=== PATIENT | female | born 1945 | race Caucasian/White ===

== ENCOUNTER 2024-10-04 22:58 | Emergency (ER) | payer MEDICARE, OTHER, SELFPAY ==
[2024-10-04 23:01] VITALS: BP 206/103
[2024-10-05 00:06] LABS: % Basophils 1.6 % (0-2); % Eosinophils 3.4 % (0-6); % Immature Granulocytes 0.4 % (0-0.5); % Lymphocytes 25.5 % (20.5-51.1); % Monocytes 10.5 % (1.7-9.3); % Neutrophils 58.6 % (42.2-75.2); Absolute Basophils 0.1 10^3/uL (0-0.2); Absolute Eosinophils 0.2 10^3/uL (0-0.7); Absolute Lymphocytes 1.4 10^3/uL (1.2-3.4); Absolute Monocytes 0.6 10^3/uL (0.1-0.6); Absolute Neutrophils 3.2 10^3/uL (1.4-6.5); Hemoglobin 14.1 g/dL (12.0-16.0); Mean Corp Hgb Conc. 33.6 g/dL (33.0-37.0); Mean Corpuscular Hgb 30.9 pg (27.0-31.0); Mean Corpuscular Volume 91.9 fL (81.0-99.0); Mean Platelet Volume 9.4 fL (7.4-10.4); Nucleated Red Blood Cells % 0 %; Platelet Count 240 10^3/uL (130-400); Red Blood Cell Count 4.57 10^6/uL (4.20-5.40); Red Cell Dist. Width 12.6 % (11.5-14.5); White Blood Cell Count 5.5 10^3/uL (4.8-10.8)
[2024-10-05 00:25] LABS: ALT (SGPT) 19 U/L (0-35); AST (SGOT) 27 U/L (14-36); Alkaline Phosphatase 54 U/L (38-126); Blood Urea Nitrogen 29 mg/dl (7-17); Carbon Dioxide 29 mmol/L (22-30); Chloride 106 mmol/L (98-107); Glucose 117 mg/dl (70-99); Potassium 4.3 mmol/L (3.5-5.1); Sodium 140 mmol/L (135-145); Total Bilirubin 0.8 mg/dl (0.2-1.3); Total Protein 6.6 g/dl (6.3-8.2); eGFR > 60.00
[2024-10-05 01:31] VITALS: BP 180/98
[2024-10-05 02:38] VITALS: BP 173/79
[2024-10-05 03:00] VITALS: BP 150/83
--- NOTE | 2024-10-05 03:25 | DOWNTIME ---
There was a [employer] Downtime on 10/05/2024 from 0200 to 10/06/2023 at 0318 . Downtime documentation of patient's care, including medication administrations, has been reconciled in the electronic record per guidelines. Refer to the
patient's paper chart under the miscellaneous tab to see printed paper medication records and downtime forms.
[2024-10-05 03:29] VITALS: BMI 24.2
--- NOTE | 2024-10-05 03:55 | ED.GENMED ---
History of Present Illness
General
Chief Complaint: Blood Pressure Problem
Source: patient and spouse
Exam Limitations: none
Time Seen by Provider: 10/05/24 03:31
Nursing documentation reviewed up to this point in time: agreed with
History of Present Illness
History of Present Illness:
79-year-old female with history of hypertension hyperlipidemia, GERD presenting to the emergency department today with concerns of elevated blood pressure of the last few days. Does take olmesartan typically takes 7.5 mg daily. Denies any specific
chest pain numbness weakness or any severe headache.
Review of Systems
Review of Systems
Allergies reviewed?: Yes
All Other Systems: ROS reviewed and negative except as documented in HPI and ROS
Phy Exam
Physical Exam
Physical Exam:
GENERAL: Alert , in no apparent distress
EYE: pupils equal and reactive
NECK: Supple, no significant adenopathy.
ENT: o/p clr, mmm.
CARDIAC: Regular rate and rhythm .
LUNGS: Clear breath sounds bilaterally, no acute respiratory distress, no wheezes/rales/rhonchi
ABDOMEN: Soft, without focal tenderness, no r/g, no cvat
NEUROLOGICAL: Alert and oriented, no focal neuro deficits 5-5 upper and lower extremity strength walking with steady gait
SKIN: Warm and dry, skin intact.
MUSCULOSKELETAL: No edema, well perfused.
PSYCH: Normal and appropriate interaction.
Course
Orders/Labs/Results
Orders:
Orders
10/04/24 23:57
CMP [Comprehensive Metabolic Panel] Urgent
Complete Blood Count/With Diff Urgent
Abnormal Lab Results
10/04/24
23:57
Monocytes % 10.5 H %
(1.7-9.3)
BUN 29 H mg/dl
(7-17)
Glucose 117 H mg/dl
(70-99)
10/04/24 23:57
10/04/24 23:57
Vital Signs
Initial and Last Documented VS:
Initial Vital Signs
Temp Pulse Resp BP Pulse Ox
98.4 F 94 18 206/103 98
10/04/24 23:01 10/04/24 23:01 10/04/24 23:01 10/04/24 23:01 10/04/24 23:01
Last Documented Vital Signs
Temp Pulse Resp BP Pulse Ox
98.4 F 85 18 150/83 96
10/04/24 23:01 10/05/24 01:31 10/05/24 01:31 10/05/24 03:00 10/05/24 03:30
MDM/Problems Addressed
MDM/Problems Addressed:
79-year-old female presenting to the emergency department today with concerns of elevated blood pressure. Improving here without specific treatment. 150/83 during my assessment vital signs normal currently asymptomatic. Did have a mild headache
earlier today symptoms did not seem consistent with any hypertensive emergency. Patient advised for close outpatient follow-up with the primary care doctor. Return precautions given.
*Critical Care Note
Total Time (30-74mins, 75-104mins- exclusive of procedures): Not Applicable
ED Attending Note
-
Portions of this chart may have been created with voice recognition software.� Occasional wrong word or��sound alike� substitutions may have occurred due to the inherent limitations of voice recognition software.
Discharge Plan
Departure
Patient Disposition: Home (Routine Discharge)
Date of Disposition: 10/05/24
Time of Disposition: 03:55
Patient with high blood pressure during this ER visit?: Yes
Condition: Good
Covid-19: Not Applicable
Discharge Problem:
High blood pressure
Instructions: BLOOD PRESSURE
Referrals:
Jonas Calvo, [Family Provider] -
Activity Restrictions/Additional Instructions:
You came to the emergency department today with concerns of elevated blood pressure. Please take 20 mg of your olmesartan daily and follow-up closely with your primary care doctor. Return for any worsening, new or concerning symptoms.
Interventions
Interventions:
*Risk Screen - Suicide Last Done: 10/04/24 23:01
*General Assessment Last Done: 10/04/24 23:01
*Neglect/Abuse Screening Last Done: 10/04/24 23:01
*ED- Fall Risk Assessment Last Done: 10/04/24 23:01
*ED COVID-19 Vaccine History Last Done: 10/04/24 23:01
ED- Cardiac Assessment Last Done: 10/05/24 03:29
ED- Neurological Assessment Last Done: 10/05/24 03:29
ED- Pulmonary Assessment Last Done: 10/05/24 03:29
Discharge Date and Time
Print Language: SAO TOMEAN
== END 2024-10-05 04:03 | disposition home or self-care (01) ==
LOC: EMR 22:58
PROVIDERS: Emergency Medicine; EMERGENCY PHYSICIAN Emergency Medicine; FAMILY PHYSICIAN Family Medicine
DX: I10 Essential (primary) hypertension (principal); R51.9 Headache, unspecified; E78.00 Pure hypercholesterolemia, unspecified; K21.9 Gastro-esophageal reflux disease without esophagitis
CPT/HCPCS: 99283; 80053; 85025